=== PATIENT | female | born 1955 | race African-American/Black ===

== ENCOUNTER → 2016-07-13 | Outpatient (CLI) | payer OTHER ==
[~2016-07-13] VITALS: Ht 165.1 cm; Wt 108.9 kg
[~2016-07-13] MED LIST: ASPIR 8181 M1 PO; Ambien PO; COUMADIN,JANTOVE5 MG PO; FEOSOL325 MG PO; LUNESTA2 MG PO; MOTRIN600 MG PO; MOTRIN800 MG PO; NABUMETONE750 MG PO; NEXIUM20 MG PO; PERCOCET 5/31 TABLET PO; Percocet 5/325,Endoc PO; Relafen PO; TESSALON PERLE100 MG PO; VENTOLIN HFA18 GM IH; Vicodin,Lortab 5/500 PO; ZITHROMAX500 MG PO
== END | disposition home or self-care (01) ==
LOC: AMB 02-10 14:00
PROC: 0DB68ZX Excision of Stomach, Via Natural or Artificial Opening Endoscopic, Diagnostic (ICD-10-PCS; principal; 2016-07-13)
PROC: 0DBN8ZX Excision of Sigmoid Colon, Via Natural or Artificial Opening Endoscopic, Diagnostic (ICD-10-PCS; principal; 2016-07-13)
PROC: 0DBL8ZX Excision of Transverse Colon, Via Natural or Artificial Opening Endoscopic, Diagnostic (ICD-10-PCS; principal; 2016-07-13)
PROC: 3E0H8GC Introduction of Other Therapeutic Substance into Lower GI, Via Natural or Artificial Opening Endoscopic (ICD-10-PCS; principal; 2016-07-13)
PROC: 0DBP8ZX Excision of Rectum, Via Natural or Artificial Opening Endoscopic, Diagnostic (ICD-10-PCS; principal; 2016-07-13)
DX: Z12.11 Encounter for screening for malignant neoplasm of colon (principal); D12.2 Benign neoplasm of ascending colon; D12.5 Benign neoplasm of sigmoid colon; D12.3 Benign neoplasm of transverse colon; K21.9 Gastro-esophageal reflux disease without esophagitis; B96.81 Helicobacter pylori [H. pylori] as the cause of diseases classified elsewhere; K29.50 Unspecified chronic gastritis without bleeding; K63.5 Polyp of colon; K62.1 Rectal polyp; J45.909 Unspecified asthma, uncomplicated; F17.210 Nicotine dependence, cigarettes, uncomplicated; Z79.82 Long term (current) use of aspirin
CPT/HCPCS: 88305; 88342 TC; J2250; J3010

== ENCOUNTER 2017-06-24 07:59 | Day surgery (SDC) | payer OTHER ==
[~2017-06-24] VITALS: Ht 165.1 cm; Wt 118.8 kg
[~2017-06-24 07:59] MED LIST changes: +FLOVENT 11120 INHALA IH; +METOPROLOL SUCC25 MG PO; +PERCOCET 7.51 TABLET PO
[2017-06-24 09:12] LABS: HEMATOCRIT 37.1 % (36.0-46.0); HEMOGLOBIN 11.8 G/DL (11.9-15.5); MCH 30.7 PG (29.0-34.0); MCHC 31.8 G/DL (30.0-36.0); MCV 96.6 FL (83-99); PLATELET COUNT 234 K/uL (156-360); RBC DIS.WIDTH-SD 49.6 % (39-53); RED BLOOD COUNT 3.84 M/uL (3.80-5.20); WHITE BLOOD COUNT 6.1 K/uL (4.1-10.2)
[2017-06-24 09:35] LABS: CHLORIDE 106 MEQ/L (99-109); GFR ESTIMATE (CALCULATED) > 59 mL/min/; GLUCOSE 102 mg/dL (70-99); POTASSIUM 4.1 MEQ/L (3.7-5.4); SODIUM 140 MEQ/L (136-147); UREA NITROGEN (BUN) 15 mg/dL (9-23)
== END 2017-06-24 14:00 | disposition home or self-care (01) ==
LOC: CATH 07:59
PROVIDERS: Internal Medicine Interventional Cardiology
DX: R94.39 Abnormal result of other cardiovascular function study (principal); R07.89 Other chest pain; R06.02 Shortness of breath; F17.200 Nicotine dependence, unspecified, uncomplicated; E66.9 Obesity, unspecified; Z68.42 Body mass index [BMI] 45.0-49.9, adult; Z82.49 Family history of ischemic heart disease and other diseases of the circulatory system; Z82.3 Family history of stroke; Z84.1 Family history of disorders of kidney and ureter
CPT/HCPCS: 80048; 85027; 85347; C1769; C1887; J1644; J2250; J3010; J7040